=== PATIENT | female | born 1945 | race Caucasian/White ===

== ENCOUNTER → 2018-08-09 10:28 | Outpatient (CLI) | payer MEDICARE, OTHER, SELFPAY ==
--- NOTE | 2018-08-09 11:41 | DI.CT.S_ITS ---
PROCEDURE: CT SOFT TISSUE NECK W CON INDICATIONS: PARTIAL VOCAL CORD PARALYSIS; DYSPHONIA TECHNIQUE: After the administration of intravenous contrast, 3.0 mm axial sections acquired from the sella to the aortic arch. Additional oblique axial 3.0 mm sections acquired through the pharynx. 3 mm thick coronal and sagittal reformats were generated. For radiation dose reduction, the following was used: automated exposure control. COMPARISON: [facility], CT, PE STUDY (CTA CHEST), 12/10/2015, 7:54. [facility], CT, CT CHEST W CON, 08/09/2018, 12:04. FINDINGS: Image quality: Excellent. Lymph nodes: No enlarged lymph nodes seen throughout the neck. Vessels: Visualized vasculature appears patent. Neck spaces: The right false vocal cord appears slightly medialized. The vocal cords themselves are unremarkable. The oropharynx, nasopharynx, and pharynx demonstrate no mucosal lesions. The pyriform sinuses, epiglottis, vallecula, and tongue base all appear normal. Extramucosal spaces appear unremarkable. Glands: The parotid and submandibular glands appear normal. Thyroid gland demonstrates a 9 mm low-density lesion within the left thyroid. Miscellaneous: Visualized brain and orbits appear normal. Lung apices appear clear. Superficial soft tissues appear normal. Bones: No suspicious bony lesions. Visualized sinuses and mastoids appear unremarkable. Relatively prominent cervical spine degenerative changes are seen. IMPRESSION: No significant abnormality can be seen within the vocal cords themselves, although the right false vocal cord appears slightly medialized. Please correlate with direct visual inspection via laryngoscopy. 9 mm left thyroid nodule incidentally noted, which is stable compared to 2016. Relatively prominent cervical spine degenerative changes are seen. Dictated by: Brandon Hart M.D. on 08/09/2018 at 12:02 Approved by: Brandon Hart M.D. on 08/09/2018 at 12:05
--- NOTE | 2018-08-09 11:41 | DI.CT.S_ITS ---
PROCEDURE: CT CHEST W CON INDICATIONS: PARTIAL VOCAL CORD PARALYSIS; DYSPHONIA TECHNIQUE: After the administration of intravenous contrast, 5 mm thick sections acquired from the pulmonary apices to the posterior costophrenic angles. 7 mm thick coronal and sagittal MIP reformats were acquired. For radiation dose reduction, the following was used: automated exposure control, adjustment of mA and/or kV according to patient size. COMPARISON: [facility], CT, PE STUDY (CTA CHEST), 12/10/2015, 7:54. FINDINGS: Image quality: Excellent. Lungs and pleura: There is biapical scarring. Dependent atelectasis in posterior aspect of the lateral lower lobes is also seen. No pleural effusions or pneumothorax. Central and peripheral airways are patent and normal in caliber. Mediastinum: Heart size is normal. No pericardial effusion. No mediastinal or hilar adenopathy by size criteria. Thoracic aorta and central pulmonary arteries are normal in size. Esophagus is normal in caliber. No hiatal hernia. Bones and chest wall: No suspicious bony lesions. No vertebral body compression fractures. No axillary or supraclavicular adenopathy by size criteria. Thyroid gland shows interval decrease in size of patient's known hypodense structure involving the mid pole of left thyroid lobe, now measures approximately 6 x 3 mm in size compared to 9 x 7 mm in size a previous study.. Abdomen: Visualized upper abdominal solid organs appear normal. Upper abdominal bowel loops are normal in caliber. IMPRESSION: 1. No gross adenopathy is seen in the chest. No mediastinal mass or fluid collection. 2. Interval decrease in size of patient's known hypodense area involving midpole of left thyroid lobe. 3. Biapical scarring and bibasilar dependent atelectasis. Bilateral lens otherwise clear. Airway is patent. Dictated by: Ignacio Duncan M.D. on 08/09/2018 at 12:47 Approved by: Ignacio Duncan M.D. on 08/09/2018 at 13:05
[2018-08-09 12:06] LABS: BUN Creatinine Ratio 31.4 (6-22); Blood Urea Nitrogen 22 mg/dL (7-17); Estimated Glomerular Filt Rate > 60.0 mL/min (>60)
== END ==
PROVIDERS: Family Provider Internal Medicine; PCP Internal Medicine; Visit Provider Otolaryngology
DX: J38.01 Paralysis of vocal cords and larynx, unilateral (principal); J98.4 Other disorders of lung; E04.1 Nontoxic single thyroid nodule; R49.0 Dysphonia; R13.10 Dysphagia, unspecified
CPT/HCPCS: 36415; 70491; 71260; 82565; 84520; Q9967

== ENCOUNTER 2018-12-31 11:48 | Emergency (ER) | payer MEDICARE, OTHER, SELFPAY ==
[2018-12-31 11:53] VITALS: BP 142/72; PULSE 73; RESP 14; TEMP 36.2; O2SAT 100
--- NOTE | 2018-12-31 12:05 | ED.UPPEXIN ---
HPI - Extremity Injury (Upper) General Chief Complaint: Extremity Injury, Upper Stated Complaint: possibility of broken rt arm Time Seen by Provider: 12/31/18 12:05 Source: patient and family ( The ) Mode of arrival: ambulatory Limitations: no limitations History of Present Illness HPI narrative: This is a 73-year-old female comes in with complaint of right wrist pain as well as some tingling and numbness in her 1st and 2nd finger. Patient states that yesterday she fell with an outstretched hand she had immediate pain. She does notice some swelling. Patient states it is quite painful. She prefers not to movement. She states her hand feels a little cooler as well. Patient does take an aspirin daily. She denies any other injuries, she did not hit her she denies any neck back pain. She is right-hand dominant. Patient does take medication for blood pressure and a water pill. Denies prior surgeries. Related Data Home Medications Medication Instructions Recorded Confirmed Vitamins 1 dose PO DAILY 12/31/18 12/31/18 diltiazem HCl 120 mg PO Q12H 12/31/18 12/31/18 fluoxetine 20 mg PO DAILY 12/31/18 12/31/18 triamterene-hydrochlorothiazid 1 tab PO DAILY 12/31/18 12/31/18 Allergies Allergy/AdvReac Type Severity Reaction Status Date / Time No Known Drug Allergies Allergy Verified 12/31/18 11:58 Review of Systems Review of Systems ROS Unobtainable: All systems reviewed & are unremarkable except as noted in HPI and below Constitutional Denies other ( head injury) ENT Ears, Nose, Mouth, and Throat: Denies neck pain Musculoskeletal Reports as per HPI, Denies back pain, Reports arthralgias ( Right wrist), Reports joint swelling, Reports limited range of motion, Denies muscle weakness, Denies neck pain, Reports numbness ( 2nd 1st fingers) and Denies stiffness Integumentary/Breasts Reports unusual bruising Neurologic Reports numbness ( 2nd 1st fingers) PFSH Medical History Hypertension (Chronic) Social History Smoking Status: Never smoker Social History Smoking Status: Never smoker Exam Narrative Exam Narrative: GEN: well nourished, well appearing female, alert and oriented x 3, patient appears to be in mild distress. HEENT: Atraumatic, pupils are equal round reactive to light, extraocular movements are intact, nares are clear HEART: Regular rate and rhythm without murmur, clicks, rubs. LUNGS:Lungs clear to auscultation, no wheezes, rales, crackles, chest moves symmetrically ABD:bowel sounds normal, soft, non-tender, no guarding, rebound, rigidity, no masses noted, no hepatosplenomegaly MSCL: Non-tender, no muscle atrophy, patient has tenderness and swelling over the right distal wrist. Patient has a lot more swelling on the flexor side in comparison to extensor, patient has cap refill less than 2 sec in all 5 fingers. Right hand does feel little bit cooler than the left. She is able to move her fingers. She does not wish to do any further strength testing. Patient has sensation to light touch but states that the some has less sensation, the 2nd finger has some and 3rd 4th and 5th all have normal sensation. NEURO:CN 2-12 intact, sensation normal, reflexes 2/4 upper and lower extremities. Initial Vital Signs Initial Vital Signs: Vital Signs Temperature 97.1 F L 12/31/18 11:53 Pulse Rate 73 12/31/18 11:53 Respiratory Rate 14 12/31/18 11:53 Blood Pressure 142/72 H 12/31/18 11:53 Pulse Oximetry 100 12/31/18 11:53 Course Orders Ordered: ED Orders 12/31/18 12:05 XR wrist RT min 3V Stat Discontinued Medications Hydrocodone Bitart/Acetaminophen ([place] 5/325) 1 tab PO NOW ONE Stop: 12/31/18 13:51 Last Admin: 12/31/18 13:54 Dose: 1 tab Vital Signs - 8 hr 12/31/18 11:53 12/31/18 13:17 Temperature 97.1 F L Pulse Rate 73 60 Respiratory Rate 14 18 Blood Pressure 142/72 H Blood Pressure [Left Arm] 140/66 Pulse Oximetry 100 95 MDM - Extremity Injury (Upper) Imaging Data Right wrist x-ray: Radiologist's impression: Nanda Koenig 73 F [address] [address] XRay Report Signed Patient: Nanda Koenig EMR#: [id number] : 7Acct:[id number] Age/Sex: 73 / FDate of Service: 12/31/18 Loc: ED Accession Number: [id number] Procedure: XR wrist RT min 3V Ordering Provider: Shanna Lamar D.O. PROCEDURE: XR WRIST RT MIN 3V INDICATIONS: right wrist pain, deformity, fall yesterday TECHNIQUE: 3 views of the wrist were acquired. COMPARISON: None. FINDINGS: Bones: Accessory ossicle versus old ulnar styloid process avulsion fracture. No acute fractures or dislocations. No suspicious bony lesions. Wrist osteoarthritis. Scaphoid view: Scaphoid is intact. Soft tissues: No suspicious soft tissue calcifications. IMPRESSION: No acute fracture. No acute osseous lesion. If symptoms and/or clinical suspicion for pathology persists, further assessment with repeat radiographs (7-10 days) or advanced imaging (e.g. CT, MRI or bone scan) may be helpful. Dictated by: Gail Johnson MD, PhD on 12/31/2018 at 12:43 Approved by: Gail Johnson MD, PhD on 12/31/2018 at 12:44 [facility] Narrative Medical decision making narrative: Patient's x-ray is negative for fracture patient does have some swelling but it is more in the soft tissue, she does not have clear deformity. Patient does have full movement of her fingers. She has sensation to light touch about she says has improved while she has been here in the ED. She has had an ice pack on her hand but has good cap refill as well as a radial pulse. Plan to put patient in a splint to treat this patient as a fracture and discussed that she can have repeat imaging in 7-10 days if she continues to have pain to re-evaluate. Patient and I discussed ibuprofen and/or Tylenol. She states she does not like to take Tylenol she worries about liver issues is that she is quite uncomfortable so will do 1 dose of [place] here and could she continue ibuprofen and icing at home. Discharge Plan Departure Patient Disposition: Home Clinical Impression: Sprain and strain of wrist Discharge Date/Time: 12/31/18 14:06 Interventions: ED Discharge Assessment Last Done: 12/31/18 14:06 Instructions: DI for Wrist Sprain Activity Restrictions/Additional Instructions: Follow-up for repeat imaging in 7-10 days if your symptoms are not resolving in her wrist, occasionally people will have very small fractures that do not show up on initial imaging but do show up later as the bone is healing. If your pain has resolved you may stop using the wrist splint. Continue the wrist splint if your continuing to have pain. You may take 600 mg every ibuprofen every 600 hr. You may also take Tylenol a 1000 mg every 8 hr as needed for pain. You may take these 2 medications together if you wish. Splint Care: Keep splint clean and dry. Elevated affected body part to decrease swelling. OK to use ice pack on the affected body part. Use for 15-20 minutes each time, for 5-6x per day. If you develop worsening pain, numbness, tingling, discoloration of the affected body part, loosen the splint by loosening the JENNIFER wrap, and either see your doctor for an urgent re-assessment, or return to the Emergency Department. Return to the Emergency Department for any new or worsening symptoms. Prescriptions: No Action diltiazem HCl 120 mg Capsule,Extended Release 12 Hr 120 mg PO Q12H RF: 0 triamterene-hydrochlorothiazid 37.5-25 mg Tablet 1 tab PO DAILY RF: 0 fluoxetine 20 mg Capsule 20 mg PO DAILY RF: 0 Vitamins 1 dose PO DAILY RF: 0 Referrals: Lisa Love MD [Primary Care Provider] -
--- NOTE | 2018-12-31 12:11 | ED_ITS ---
HPI - Extremity Injury (Upper) General Chief Complaint: Extremity Injury, Upper Stated Complaint: possibility of broken rt arm Time Seen by Provider: 12/31/18 12:05 Source: patient and family ( The ) Mode of arrival: ambulatory Limitations: no limitations History of Present Illness HPI narrative: This is a 73-year-old female comes in with complaint of right wrist pain as well as some tingling and numbness in her 1st and 2nd finger. Patient states that yesterday she fell with an outstretched hand she had immediate pain. She does notice some swelling. Patient states it is quite painful. She prefers not to movement. She states her hand feels a little cooler as well. Patient does take an aspirin daily. She denies any other injuries, she did not hit her she denies any neck back pain. She is right-hand dominant. Patient does take medication for blood pressure and a water pill. Denies prior surgeries. Related Data Home Medications Medication Instructions Recorded Confirmed Vitamins 1 dose PO DAILY 12/31/18 12/31/18 diltiazem HCl 120 mg PO Q12H 12/31/18 12/31/18 fluoxetine 20 mg PO DAILY 12/31/18 12/31/18 triamterene-hydrochlorothiazid 1 tab PO DAILY 12/31/18 12/31/18 Allergies Allergy/AdvReac Type Severity Reaction Status Date / Time No Known Drug Allergies Allergy Verified 12/31/18 11:58 Review of Systems Review of Systems ROS Unobtainable: All systems reviewed & are unremarkable except as noted in HPI and below Constitutional Denies other ( head injury) ENT Ears, Nose, Mouth, and Throat: Denies neck pain Musculoskeletal Reports as per HPI, Denies back pain, Reports arthralgias ( Right wrist), Reports joint swelling, Reports limited range of motion, Denies muscle weakness, Denies neck pain, Reports numbness ( 2nd 1st fingers) and Denies stiffness Integumentary/Breasts Reports unusual bruising Neurologic Reports numbness ( 2nd 1st fingers) PFSH Medical History Hypertension (Chronic) Social History Smoking Status: Never smoker Social History Smoking Status: Never smoker Exam Narrative Exam Narrative: GEN: well nourished, well appearing female, alert and oriented x 3, patient appears to be in mild distress. HEENT: Atraumatic, pupils are equal round reactive to light, extraocular movements are intact, nares are clear HEART: Regular rate and rhythm without murmur, clicks, rubs. LUNGS:Lungs clear to auscultation, no wheezes, rales, crackles, chest moves symmetrically ABD:bowel sounds normal, soft, non-tender, no guarding, rebound, rigidity, no masses noted, no hepatosplenomegaly MSCL: Non-tender, no muscle atrophy, patient has tenderness and swelling over the right distal wrist. Patient has a lot more swelling on the flexor side in comparison to extensor, patient has cap refill less than 2 sec in all 5 fingers. Right hand does feel little bit cooler than the left. She is able to move her fingers. She does not wish to do any further strength testing. Patient has sensation to light touch but states that the some has less sensation, the 2nd finger has some and 3rd 4th and 5th all have normal sensation. NEURO:CN 2-12 intact, sensation normal, reflexes 2/4 upper and lower extremities. Initial Vital Signs Initial Vital Signs: Vital Signs Temperature 97.1 F L 12/31/18 11:53 Pulse Rate 73 12/31/18 11:53 Respiratory Rate 14 12/31/18 11:53 Blood Pressure 142/72 H 12/31/18 11:53 Pulse Oximetry 100 12/31/18 11:53 Course Orders Ordered: ED Orders 12/31/18 12:05 XR wrist RT min 3V Stat Discontinued Medications Hydrocodone Bitart/Acetaminophen ([place] 5/325) 1 tab PO NOW ONE Stop: 12/31/18 13:51 Last Admin: 12/31/18 13:54 Dose: 1 tab Vital Signs - 8 hr 12/31/18 11:53 12/31/18 13:17 Temperature 97.1 F L Pulse Rate 73 60 Respiratory Rate 14 18 Blood Pressure 142/72 H Blood Pressure [Left Arm] 140/66 Pulse Oximetry 100 95 MDM - Extremity Injury (Upper) Imaging Data Right wrist x-ray: Radiologist's impression: Nanda Koenig 73 F [address] [address] XRay Report Signed Patient: Nanda Koenig EMR#: [id number] : 7Acct:[id number] Age/Sex: 73 / FDate of Service: 12/31/18 Loc: ED Accession Number: [id number] Procedure: XR wrist RT min 3V Ordering Provider: Shanna Lamar D.O. PROCEDURE: XR WRIST RT MIN 3V INDICATIONS: right wrist pain, deformity, fall yesterday TECHNIQUE: 3 views of the wrist were acquired. COMPARISON: None. FINDINGS: Bones: Accessory ossicle versus old ulnar styloid process avulsion fracture. No acute fractures or dislocations. No suspicious bony lesions. Wrist osteoarthritis. Scaphoid view: Scaphoid is intact. Soft tissues: No suspicious soft tissue calcifications. IMPRESSION: No acute fracture. No acute osseous lesion. If symptoms and/or clinical suspicion for pathology persists, further assessment with repeat radiographs (7- 10 days) or advanced imaging (e.g. CT, MRI or bone scan) may be helpful. Dictated by: Gail Johnson MD, PhD on 12/31/2018 at 12:43 Approved by: Gail Johnson MD, PhD on 12/31/2018 at 12:44 [facility] Narrative Medical decision making narrative: Patient's x-ray is negative for fracture patient does have some swelling but it is more in the soft tissue, she does not have clear deformity. Patient does have full movement of her fingers. She has sensation to light touch about she says has improved while she has been here in the ED. She has had an ice pack on her hand but has good cap refill as well as a radial pulse. Plan to put patient in a splint to treat this patient as a fracture and discussed that she can have repeat imaging in 7-10 days if she continues to have pain to re-evaluate. Patient and I discussed ibuprofen and/or Tylenol. She states she does not like to take Tylenol she worries about liver issues is that she is quite uncomfortable so will do 1 dose of [place] here and could she continue ibuprofen and icing at home. Discharge Plan Departure Patient Disposition: Home Clinical Impression: Sprain and strain of wrist Discharge Date/Time: 12/31/18 14:06 Interventions: ED Discharge Assessment Last Done: 12/31/18 14:06 Instructions: DI for Wrist Sprain Activity Restrictions/Additional Instructions: Follow-up for repeat imaging in 7-10 days if your symptoms are not resolving in her wrist, occasionally people will have very small fractures that do not show up on initial imaging but do show up later as the bone is healing. If your pain has resolved you may stop using the wrist splint. Continue the wrist splint if your continuing to have pain. You may take 600 mg every ibuprofen every 600 hr. You may also take Tylenol a 1000 mg every 8 hr as needed for pain. You may take these 2 medications together if you wish. Splint Care: Keep splint clean and dry. Elevated affected body part to decrease swelling. OK to use ice pack on the affected body part. Use for 15-20 minutes each time, for 5-6x per day. If you develop worsening pain, numbness, tingling, discoloration of the affected body part, loosen the splint by loosening the JENNIFER wrap, and either see your doctor for an urgent re-assessment, or return to the Emergency Department. Return to the Emergency Department for any new or worsening symptoms. Prescriptions: No Action diltiazem HCl 120 mg Capsule,Extended Release 12 Hr 120 mg PO Q12H RF: 0 triamterene-hydrochlorothiazid 37.5-25 mg Tablet 1 tab PO DAILY RF: 0 fluoxetine 20 mg Capsule 20 mg PO DAILY RF: 0 Vitamins 1 dose PO DAILY RF: 0 Referrals: Lisa Love MD [Primary Care Provider] -
[2018-12-31 13:17] VITALS: BP 140/66; PULSE 60; RESP 18; O2SAT 95
[2018-12-31] MEDS: HYDROCODONE/ACET 5/325 TABLET 1 TAB PO (13:54)
== END 2018-12-31 14:06 | disposition home or self-care (01) ==
PROVIDERS: Emergency Provider Emergency Medicine; PCP Internal Medicine
DX: S63.501A Unspecified sprain of right wrist, initial encounter (principal)
CPT/HCPCS: 29260; 73110; 99282; 99283

== ENCOUNTER 2023-02-18 14:18 | Emergency (ER) | payer MEDICARE, OTHER, SELFPAY ==
[2023-02-18] VITALS (12 sets, daily range): BP systolic 151–181; BP diastolic 72–103; PULSE 62–82; RESP 18; TEMP 37.3; O2SAT 93–100; BMI 20.1
--- NOTE | 2023-02-18 15:26 | ED_ITS ---
HPI - Headache General Chief Complaint: Headache Stated Complaint: stiff neck/headache/ T-1 Time Seen by Provider: 02/18/23 15:25 Source: patient Mode of arrival: Ambulatory Limitations: no limitations History of Present Illness HPI Narrative: This 77-year-old patient arrives with severe neck pain, onset yesterday. She has pain radiating to the occipital scalp. She feels like she is locked, she can not move her head about. She is no recent trauma. She does not think she slept in a bad position. She denies recent illness. She is had no head cold, cough or congestion. She is no fever chills. She was seen last week in walk-in clinic with neck/upper back pain. She was diagnosed with trapezius strain. She is history of arthritis, evidence with changes in her hand knuckles. She is no prior diagnosis of osteoarthritis of the cervical spine. She does not have chronic head neck pain, symptoms began flaring last week as noted above. She is no upper extremity or lower extremity numbness or weakness. She is no incontinence. Related Data Home Medications Medication Instructions Recorded Confirmed Vitamins 1 dose PO DAILY 12/31/18 02/10/23 diltiazem HCl 120 mg 120 mg PO Q12H 12/31/18 02/10/23 capsule,extended release 12 hr fluoxetine 20 mg capsule 20 mg PO DAILY 12/31/18 02/10/23 triamterene 37.5 1 tab PO DAILY 12/31/18 02/10/23 mg-hydrochlorothiazide 25 mg tablet Previous Rx's Medication Instructions Recorded methylprednisolone 4 mg tablets in See Rx Instructions PO PER PKG DIR 02/10/23 a dose pack (Medrol (Rafita)) #21 ea methocarbamol 750 mg tablet 750 mg PO Q6H spasm #40 tabs 02/18/23 tramadol 50 mg tablet 50 mg PO Q6-8H PRN pain #20 tabs 02/18/23 Allergies Allergy/AdvReac Type Severity Reaction Status Date / Time No Known Drug Allergies Allergy Verified 02/10/23 14:06 Review of Systems Constitutional Constitutional: Denies body ache(s), Denies fatigue and Denies fever(s) Eyes Eyes: Denies change in vision ENT Ears, Nose, Mouth, and Throat: Denies vertigo, Denies dizziness and Reports neck pain Cardiovascular Cardiovascular: Denies chest pain and Denies rapid heart rate Respiratory Respiratory: Denies chest congestion and Denies cough Gastrointestinal Gastrointestinal: Denies abdominal pain and Denies nausea Musculoskeletal Musculoskeletal: Denies back pain, Denies muscle weakness, Denies myalgias, Reports neck pain, Denies numbness and Reports stiffness Integumentary/Breasts Skin/Breast: Denies lesions and Denies rash Neurologic Neurologic: Denies confusion, Denies vertigo, Denies dizziness and Denies numbness Psychiatric Psychiatric: Denies confusion Endocrine Endocrine: Denies fatigue Hematologic/Lymphatic On Anticoagulants: No Patient History Medical History (Updated 02/18/23 @ 18:30 by Faustino Wilson MD) Hypertension Social History Smoking Status: Never smoker Smoking Status: Never smoker alcohol intake frequency: 0-2 drinks per day Substance Use Type: does not use Exam Initial Vital Signs Initial Vital Signs: Vital Signs Pulse Rate 81 02/18/23 14:24 Pulse Oximetry 93 02/18/23 14:24 Const General: cooperative, healthy appearing and other (Uncomfortable due to neck pain.) HENMT Head: normocephalic and atraumatic Throat: posterior oropharynx normal Eyes General: Yes appearance normal, both eyes and all related structures Neck Other: Notable kyphosis tenderness along the cervical spine. Resp Effort & Inspection: normal respiratory effort Auscultation: clear to auscultation bilaterally Cardio Rate: regular rate Rhythm: regular rhythm Heart Sounds: S1 normal, S2 normal and no murmurs Back/Spine/Pelvis Back: No back tenderness Skin General: no rashes or lesions noted Neuro General: patient alert, patient awake, patient oriented x3 and no focal motor deficits Extrem General: normal to inspection and full ROM Psych Mental Status: mental status grossly normal Course Course Course Narrative: C-spine CT reveals diffuse osteoarthritis, as well as a cystic abnormality at C2. Malignancy is not suspected. She is moving a little better with less discomfort with medications given. She will be discharged on Advil, tramadol, and Robaxin. She should talk to her PCM about an MRI of her C-spine. Orders Ordered: ED Orders 02/18/23 15:31 CT cervical spine wo con Stat Discontinued Medications Hydrocodone Bitart/Acetaminophen (Hydrocodone/Acet 5/325 Tablet) 1 tab PO NOW ONE Stop: 02/18/23 17:54 Last Admin: 02/18/23 17:57 Dose: 1 tab Documented By: KAYODE Ketorolac Tromethamine (Ketorolac 30 Mg/Ml Vial) 30 mg IM NOW ONE Stop: 02/18/23 15:32 Last Admin: 02/18/23 15:46 Dose: 30 mg Documented By: KAYODE Vital Signs Vital signs: Vital Signs - 8 hr 02/18/23 14:29 02/18/23 14:24 02/18/23 14:25 Temperature 99.1 F Pulse Rate 82 81 79 Respiratory Rate 18 Blood Pressure 173/81 H Pulse Oximetry 97 93 96 Oxygen Delivery Method Room Air 02/18/23 14:25 02/18/23 14:30 02/18/23 14:30 Temperature Pulse Rate 81 Respiratory Rate Blood Pressure 173/81 H 155/75 H Pulse Oximetry 98 Oxygen Delivery Method 02/18/23 15:00 02/18/23 15:00 02/18/23 15:30 Temperature Pulse Rate 76 Respiratory Rate Blood Pressure 151/75 H 160/76 H Pulse Oximetry 97 Oxygen Delivery Method 02/18/23 15:30 02/18/23 16:00 02/18/23 16:00 Temperature Pulse Rate 78 62 Respiratory Rate Blood Pressure 158/103 H Pulse Oximetry 100 99 Oxygen Delivery Method 02/18/23 16:30 02/18/23 16:30 02/18/23 17:00 Temperature Pulse Rate 70 Respiratory Rate Blood Pressure 176/77 H 162/74 H Pulse Oximetry 99 Oxygen Delivery Method 02/18/23 17:00 02/18/23 17:30 02/18/23 17:30 Temperature Pulse Rate 63 69 Respiratory Rate Blood Pressure 151/72 H Pulse Oximetry 99 100 Oxygen Delivery Method 02/18/23 18:00 02/18/23 18:00 Temperature Pulse Rate 79 Respiratory Rate Blood Pressure 181/84 H Pulse Oximetry 99 Oxygen Delivery Method MDM - Headache Imaging Data CT - cervical spine: Radiologist's Impression: Noncontrast 3 mm thick sections acquired from the skull base to the T4 level.? Sagittal and coronal reformats were then constructed.? For radiation dose reduction, the following was used:? automated exposure control, adjustment of mA and/or kV according to patient size.? ? COMPARISON:? [facility], CT, CT SOFT TISSUE NECK W CON, 08/09/2018, 12:04. ? FINDINGS:? Image quality:? Excellent.? ? Bones:? Multilevel degenerative changes.? Visualized superior ribs are intact.? Multilevel degenerative changes are present.? There is a lucent focus in the posterior aspect of the C2 vertebral body which has become progressive since 2016, currently measuring 0.7 by 1.1 x 1.5 cm compared to 0.4 x 0.5 x 0.4 cm.? There is marked thinning of the posterior cortex, with the midportion demonstrating poor visualization of residual cortex ? Soft tissues:? Prevertebral soft tissues are normal in thickness.? No paravertebral hematomas.? No apical pneumothoraces.? Low-attenuation focus within the thyroid lobe is again identified slightly increased in size. ? ? IMPRESSION:? ? Progressive enlargement of cystic like structure in the C2 vertebral body compared to 2018.? It is likely benign given slow growth.? However, etiology is uncertain based on current exam.? As clinically indicated, MRI may be obtained on a nonemergent basis for further evaluation.? As noted above, there is marked thinning along the posterior cortex of the C2 vertebral body compared to prior exam.? Small cortical fracture within this region of indeterminate age cannot be excluded. ? Discharge Plan Departure Patient Disposition: Home Clinical Impression: Cervical osteoarthritis Qualifiers: Spinal osteoarthritis complication: without myelopathy or radiculopathy Qualified Code(s): M47.812 - Spondylosis without myelopathy or radiculopathy, cervical region Instructions: Osteoarthritis Activity Restrictions/Additional Instructions: Your osteoarthritis throughout her cervical spine. There is a cystic bone lesion at C2. Talk to your PCM, cervical MRI is suggested. Advil 2 tablets every 6-8 hours as needed for pain. Robaxin every 6 hours for spasm. I would suggest taking the Advil on Robaxin together. Tramadol every 6 hours for added pain control. Arrange follow-up with your PCM. Prescriptions: New tramadol 50 mg tablet 50 mg PO Q6-8H PRN (Reason: pain) Qty: 20 0RF methocarbamol 750 mg tablet 750 mg PO Q6H Qty: 40 0RF No Action methylprednisolone [Medrol (Rafita)] 4 mg tablets,dose pack See Rx Instructions PO PER PKG DIR Qty: 21 0RF Rx Instructions: PO PER PKG DIR diltiazem HCl 120 mg Capsule,Extended Release 12 Hr 120 mg PO Q12H triamterene-hydrochlorothiazid 37.5-25 mg Tablet 1 tab PO DAILY fluoxetine 20 mg Capsule 20 mg PO DAILY Vitamins 1 dose PO DAILY Patient Comments: patient states takes E, C, D3, Magnesium and multivit. Referrals: Vivien Smith MD [Primary Care Provider] - Stand Alone Forms: Patient Portal/API
--- NOTE | 2023-02-18 15:31 | DI.CT.S_ITS ---
PROCEDURE: CT CERVICAL SPINE WO CON INDICATIONS: Severe neck pain TECHNIQUE: Noncontrast 3 mm thick sections acquired from the skull base to the T4 level. Sagittal and coronal reformats were then constructed. For radiation dose reduction, the following was used: automated exposure control, adjustment of mA and/or kV according to patient size. COMPARISON: [facility], CT, CT SOFT TISSUE NECK W CON, 08/09/2018, 12:04. FINDINGS: Image quality: Excellent. Bones: Multilevel degenerative changes. Visualized superior ribs are intact. Multilevel degenerative changes are present. There is a lucent focus in the posterior aspect of the C2 vertebral body which has become progressive since 2016, currently measuring 0.7 by 1.1 x 1.5 cm compared to 0.4 x 0.5 x 0.4 cm. There is marked thinning of the posterior cortex, with the midportion demonstrating poor visualization of residual cortex Soft tissues: Prevertebral soft tissues are normal in thickness. No paravertebral hematomas. No apical pneumothoraces. Low-attenuation focus within the thyroid lobe is again identified slightly increased in size. IMPRESSION: Progressive enlargement of cystic like structure in the C2 vertebral body compared to 2018. It is likely benign given slow growth. However, etiology is uncertain based on current exam. As clinically indicated, MRI may be obtained on a nonemergent basis for further evaluation. As noted above, there is marked thinning along the posterior cortex of the C2 vertebral body compared to prior exam. Small cortical fracture within this region of indeterminate age cannot be excluded. Dictated by: Celine Quijano M.D. on 02/18/2023 at 16:19 Approved by: Celine Quijano M.D. on 02/18/2023 at 16:24
[2023-02-18] MEDS: KETOROLAC 30 MG/ML VIAL IM (15:46)
[2023-02-18] MEDS: HYDROCODONE/ACET 5/325 TABLET 1 TAB PO (17:57)
[2023-02-18] MEDS: TRAMADOL 50 MG PREPACK 1 BOTTLE MISC (18:43)
== END 2023-02-18 18:46 | disposition home or self-care (01) ==
PROVIDERS: Emergency Provider Emergency Medicine; PCP Student in an Organized Health Care Education/Training Program
DX: M47.812 Spondylosis without myelopathy or radiculopathy, cervical region (principal)
CPT/HCPCS: 72125; 96372; 99284; J1885

== ENCOUNTER 2023-02-21 15:25 | Emergency (ER) | payer MEDICARE, OTHER, SELFPAY ==
[2023-02-21 15:35] VITALS: BP 159/77; PULSE 87; RESP 18; TEMP 36.6; O2SAT 98; BMI 19.7
--- NOTE | 2023-02-21 16:11 | ED_ITS ---
HPI - General Adult General Chief complaint: Extremity Injury, Upper Stated complaint: Thinks Heart attack Time Seen by Provider: 02/21/23 15:42 Source: patient Mode of arrival: Wheelchair History of Present Illness HPI narrative: 77-year-old female who is here for evaluation of left shoulder left upper back pain. Initially the chief complaint was potentially a heart attack but this was given by the patient's not by the patient. She is not having chest pain. No shortness of breath. She was seen here in the emergency department a couple days ago where she was having neck discomfort causing her to have a headache. She had a CT scan of her neck and was discharged home with muscle relaxers and pain medication. She stated that those symptoms have improved but now she has pain in her left shoulder. She is pain with palpation and movement. No left elbow or wrist pain. No falls. She was told that she had arthritis. No skin changes. Related Data Home Medications Medication Instructions Recorded Confirmed Vitamins 1 dose PO DAILY 12/31/18 02/10/23 diltiazem HCl 120 mg 120 mg PO Q12H 12/31/18 02/10/23 capsule,extended release 12 hr fluoxetine 20 mg capsule 20 mg PO DAILY 12/31/18 02/10/23 triamterene 37.5 1 tab PO DAILY 12/31/18 02/10/23 mg-hydrochlorothiazide 25 mg tablet Previous Rx's Medication Instructions Recorded methylprednisolone 4 mg tablets in See Rx Instructions PO PER PKG DIR 02/10/23 a dose pack (Medrol (Rafita)) #21 ea methocarbamol 750 mg tablet 750 mg PO Q6H spasm #40 tabs 02/18/23 tramadol 50 mg tablet 50 mg PO Q6-8H PRN pain #20 tabs 02/18/23 hydrocodone 5 mg-acetaminophen 325 1 tab PO Q8H PRN pain #10 tabs 02/21/23 mg tablet prednisone 10 mg tablet 10 mg PO DIRECTED #20 tabs 02/21/23 Allergies Allergy/AdvReac Type Severity Reaction Status Date / Time No Known Drug Allergies Allergy Verified 02/21/23 15:45 Review of Systems Constitutional Constitutional: Reports system reviewed and no additional complaints, except as documented Cardiovascular Cardiovascular: Reports system reviewed and no additional complaints, except as documented Respiratory Respiratory: Reports system reviewed and no additional complaints, except as documented Musculoskeletal Musculoskeletal: Reports system reviewed and no additional complaints, except as documented Integumentary/Breasts Skin/Breast: Reports system reviewed and no additional complaints, except as documented Neurologic Neurologic: Reports system reviewed and no additional complaints, except as documented Hematologic/Lymphatic On Anticoagulants: No Patient History Medical History Hypertension Social History Smoking Status: Never smoker Smoking Status: Never smoker alcohol intake frequency: 0-2 drinks per day Substance Use Type: does not use Exam Initial Vital Signs Initial Vital Signs: Vital Signs Temperature 97.9 F 02/21/23 15:35 Pulse Rate 87 02/21/23 15:35 Respiratory Rate 18 02/21/23 15:35 Blood Pressure 159/77 H 02/21/23 15:35 Pulse Oximetry 98 02/21/23 15:35 Oxygen Delivery Method Room Air 02/21/23 15:35 Const General: cooperative, comfortable and No ill appearing HENMT Head: normal to inspection and normocephalic Resp Effort & Inspection: normal respiratory effort Cardio Pulses: radial pulses present on the left Back/Spine/Pelvis Cervical Spine: No cervical spinal tenderness Skin General: no rashes or lesions noted Neuro General: patient alert, patient awake and moves all extremities Extrem Other: Patient does have tenderness to palpation throughout her left shoulder and tenderness to palpation with movement. Course Orders Ordered: ED Orders 02/21/23 16:12 XR shoulder LT min 2V Stat Discontinued Medications Hydrocodone Bitart/Acetaminophen (Hydrocodone/Acet 5/325 Tablet) 1 tab PO NOW ONE Stop: 02/21/23 16:13 Last Admin: 02/21/23 16:18 Dose: 1 tab Documented By: CTS Vital Signs Vital signs: Vital Signs - 8 hr 02/21/23 15:35 02/21/23 17:20 Temperature 97.9 F Pulse Rate 87 91 H Respiratory Rate 18 Blood Pressure 159/77 H 165/76 H Pulse Oximetry 98 95 Oxygen Delivery Method Room Air Room Air Medical Decision Making Imaging Data Extremity x-ray #1: Radiologist's Impression: PROCEDURE:? XR SHOULDER LT MIN 2V ? INDICATIONS:? pain with movement ? TECHNIQUE:? 3 views of the shoulder were acquired.? ? COMPARISON:? None. ? FINDINGS:? ? Bones:? No fractures or dislocations.? No suspicious bony lesions.? Visualized ribs appear intact.? Moderate osteoarthritic changes of the glenohumeral joint with large osteophytes of the humerus and irregularities of the inferior glenoid. ? Soft tissues:? No suspicious soft tissue calcifications.? ? IMPRESSION:? Moderate shoulder osteoarthrosis. [facility] Narrative Medical decision making narrative: X-ray shows no acute pathology. Low suspicion for ACS. I do suspect that this is arthritis. Low suspicion for gout. Plan will be to put her on steroids for the next couple days. The last time she was on steroid she states that it took the pain completely away. Also provide pain medication. I did advise that she contact her primary doctor on Thursday for follow-up as she may need a referral to see Physical therapy Orthopedic surgery. She was given return precautions. She expressed understanding and agreement. Discharge Plan Departure Patient Disposition: Home Clinical Impression: Arthritis Instructions: DI for Arthritis Activity Restrictions/Additional Instructions: I recommend on Thursday you contact your primary doctor for follow-up as he most likely going to need a referral to see either physical therapy or the orthopedic surgeons. Take all of your medications as directed. Return to the emergency department for new symptoms Prescriptions: New hydrocodone-acetaminophen 5-325 mg tablet 1 tab PO Q8H PRN (Reason: pain) Qty: 10 0RF prednisone 10 mg tablet 10 mg PO DIRECTED Qty: 20 0RF Rx Instructions: 2T PO QD for 5D then 1T PO QD for 5 D then 1/2 T PO QD for 5D No Action methylprednisolone [Medrol (Rafita)] 4 mg tablets,dose pack See Rx Instructions PO PER PKG DIR Qty: 21 0RF Rx Instructions: PO PER PKG DIR diltiazem HCl 120 mg Capsule,Extended Release 12 Hr 120 mg PO Q12H triamterene-hydrochlorothiazid 37.5-25 mg Tablet 1 tab PO DAILY fluoxetine 20 mg Capsule 20 mg PO DAILY Vitamins 1 dose PO DAILY Patient Comments: patient states takes E, C, D3, Magnesium and multivit. tramadol 50 mg tablet 50 mg PO Q6-8H PRN (Reason: pain) Qty: 20 0RF methocarbamol 750 mg tablet 750 mg PO Q6H Qty: 40 0RF Referrals: Vivien Smith MD [Primary Care Provider] - Stand Alone Forms: Patient Portal/API
--- NOTE | 2023-02-21 16:12 | DI.RAD.S_ITS ---
PROCEDURE: XR SHOULDER LT MIN 2V INDICATIONS: pain with movement TECHNIQUE: 3 views of the shoulder were acquired. COMPARISON: None. FINDINGS: Bones: No fractures or dislocations. No suspicious bony lesions. Visualized ribs appear intact. Moderate osteoarthritic changes of the glenohumeral joint with large osteophytes of the humerus and irregularities of the inferior glenoid. Soft tissues: No suspicious soft tissue calcifications. IMPRESSION: Moderate shoulder osteoarthrosis. Dictated by: Doug Crowder M.D. on 02/21/2023 at 15:34 Approved by: Doug Crowder M.D. on 02/21/2023 at 15:35
[2023-02-21] MEDS: HYDROCODONE/ACET 5/325 TABLET 1 TAB PO (16:18)
[2023-02-21 17:20] VITALS: BP 165/76; PULSE 91; O2SAT 95
== END 2023-02-21 17:21 | disposition home or self-care (01) ==
PROVIDERS: Emergency Provider Emergency Medicine; PCP Student in an Organized Health Care Education/Training Program
DX: M19.012 Primary osteoarthritis, left shoulder (principal)
CPT/HCPCS: 73030; 99283

== ENCOUNTER → 2023-08-02 10:55 | Outpatient (CLI) | payer MEDICARE, OTHER, SELFPAY ==
--- NOTE | 2023-08-02 | DI.MRI.S_ITS ---
PROCEDURE: MR SHOULDER LT WO CON INDICATIONS: nontraumatic tear of left rotator cuff TECHNIQUE: Noncontrast oblique coronal T2 fast spin echo with fat saturation, oblique sagittal T1 spin echo and T2 fast spin echo with fat saturation, axial T1 spin echo and T2 fast spin echo with fat saturation through the shoulder. COMPARISON: None. FINDINGS: Image quality: Excellent. Rotator cuff: Low to moderate grade articular and bursal surface partial thickness tear involving distal supraspinatus at its insertion on the humeral head is seen extending to musculotendinous junction. Low-grade articular surface partial-thickness tear involving distal infraspinatus at its insertion on the humeral head is also noted. Subscapularis tendinosis is seen. No full-thickness rotator cuff tendon rupture. Sagittal images demonstrate mild to moderate supraspinatus muscle atrophy. Bones and bursae: Moderate acromioclavicular joint osteoarthritic changes are seen with joint space narrowing and downward osteophyte formation depressing the musculotendinous junction of supraspinatus. Moderate to severe glenohumeral joint osteoarthritic changes are seen with near complete loss of joint space, extensive subchondral sclerosis and edema and prominent downward osteophyte formation. There is moderate amount of joint effusion and small amount of subacromial subdeltoid bursal fluid. No definite intra-articular loose body is seen. No acute fracture or dislocation. Capsule and soft tissues: There is suggestion of superior anterior labral tear at 12 to 2 o'clock position and extensive inferior labral tear at 5 to 7 o'clock position. The long head of the biceps tendon demonstrates normal location and morphology. The rotator interval appears normal, without fibrosis. The coracohumeral ligament is normal in thickness. IMPRESSION: 1. Moderate acromioclavicular joint osteoarthritis and moderate to severe glenohumeral joint osteoarthritis. No acute fracture or dislocation. Moderate to large joint effusion and small amount of subacromial subdeltoid bursal fluid, no gross loose bodies. 2. Low to moderate grade articular and bursal surface partial thickness tear involving distal supraspinatus extending to musculotendinous junction. Low-grade articular surface partial-thickness tear involving distal infraspinatus. Distal subscapularis tendinosis. No full-thickness rotator cuff tendon rupture. Mild to moderate supraspinatus muscle atrophy. 3. Suggestion of superior anterior labral tear at 12 to 2 o'clock position and inferior labral tear at 5 to 7 o'clock position. Dictated by: Ignacio Duncan M.D. on 08/03/2023 at 11:14 Approved by: Ignacio Duncan M.D. on 08/03/2023 at 11:20
== END ==
PROVIDERS: PCP Student in an Organized Health Care Education/Training Program; Referring Provider Orthopaedic Surgery; Visit Provider Orthopaedic Surgery
DX: M19.012 Primary osteoarthritis, left shoulder (principal); M25.412 Effusion, left shoulder; M75.112 Incomplete rotator cuff tear or rupture of left shoulder, not specified as traumatic; M62.512 Muscle wasting and atrophy, not elsewhere classified, left shoulder
CPT/HCPCS: 73221

== ENCOUNTER 2023-08-16 11:13 | Emergency (ER) | payer MEDICARE, OTHER, SELFPAY ==
[2023-08-16 11:18] VITALS: BP 169/72; PULSE 69; RESP 16; TEMP 37; O2SAT 98; BMI 19.2
--- NOTE | 2023-08-16 11:22 | DI.RAD.S_ITS ---
PROCEDURE: XR KNEE RT 3V INDICATIONS: walking, felt a pop in her knee TECHNIQUE: 3 views of the knee were acquired. COMPARISON: None. FINDINGS: Bones: No fractures or dislocations. No suspicious bony lesions. Soft tissues: Moderate joint effusion. No suspicious soft tissue calcifications. IMPRESSION: Moderate knee joint effusion. No displaced fracture. Dictated by: Rusty High M.D. on 08/16/2023 at 12:02 Approved by: Rusty High M.D. on 08/16/2023 at 12:03
--- NOTE | 2023-08-16 13:28 | ED_ITS ---
HPI - Extremity Injury (Lower) <Sara Turcios PA-C - Last Filed: 08/16/23 14:03> General Chief Complaint: Extremity Injury, Lower Stated Complaint: R/knee injury [place]/ unable to bear weight Time Seen by Provider: 08/16/23 13:03 Source: patient Mode of arrival: Wheelchair History of Present Illness HPI Narrative: Patient is a 77-year-old female presenting for evaluation of right knee pain worsening yesterday. She reports that 1 week ago she twisted her knee while hiking for mushrooms. She states that after she twisted her knee, she was able to walk on it. She reports that although she had some pain along the lateral side of her right knee, she felt it was steadily improving. Yesterday, she notes that she was bending down to put pictures away in a closet when she felt a pop in the anterior side of her right knee just below her patella. She states she is not been able to bear weight since due to the pain. She states the pain radiates along the lateral side of her right leg and she is noticed downstream edema in her right ankle. She reports she is tried to keep her right knee elevated and used an Rivera wrap as well. She denies any pain in her popliteal Space. She notices that the edema in her right knee does seem to be improving. she denies shortness of breath or calf pain. She denies weakness in her right foot. she denies any pain in her right hip or groin. She denies any fever or redness over her right knee. She denies any back pain or anticoagulant use. Related Data Home Medications Medication Instructions Recorded Confirmed Vitamins 1 dose PO DAILY 12/31/18 02/10/23 diltiazem HCl 120 mg 120 mg PO Q12H 12/31/18 02/10/23 capsule,extended release 12 hr fluoxetine 20 mg capsule 20 mg PO DAILY 12/31/18 02/10/23 triamterene 37.5 1 tab PO DAILY 12/31/18 02/10/23 mg-hydrochlorothiazide 25 mg tablet Previous Rx's Medication Instructions Recorded methylprednisolone 4 mg tablets in See Rx Instructions PO PER PKG DIR 02/10/23 a dose pack (Medrol (Rafita)) #21 ea methocarbamol 750 mg tablet 750 mg PO Q6H spasm #40 tabs 02/18/23 tramadol 50 mg tablet 50 mg PO Q6-8H PRN pain #20 tabs 02/18/23 hydrocodone 5 mg-acetaminophen 325 1 tab PO Q8H PRN pain #10 tabs 02/21/23 mg tablet prednisone 10 mg tablet 10 mg PO DIRECTED #20 tabs 02/21/23 Allergies Allergy/AdvReac Type Severity Reaction Status Date / Time No Known Drug Allergies Allergy Verified 08/16/23 11:22 Review of Systems <Sara Turcios PA-C - Last Filed: 08/16/23 14:03> Review of Systems Narrative: See HPI Patient History <Sara Turcios PA-C - Last Filed: 08/16/23 14:03> Medical History Hypertension Social History Smoking Status: Never smoker Smoking Status: Never smoker alcohol intake frequency: 0-2 drinks per day Alcohol type: wine Substance Use Type: does not use Exam <Sara Turcios PA-C - Last Filed: 08/16/23 14:03> Initial Vital Signs Initial Vital Signs: Vital Signs Temperature 98.6 F 08/16/23 11:18 Pulse Rate 69 08/16/23 11:18 Respiratory Rate 16 08/16/23 11:18 Blood Pressure 169/72 H 08/16/23 11:18 Pulse Oximetry 98 08/16/23 11:18 Oxygen Delivery Method Room Air 08/16/23 11:18 GENERAL: 77 year old patient appears stated age. Well-developed patient, in no acute distress. HEAD: Atraumatic. Normocephalic. EYES: Pupils equal round No scleral icterus. No injection or drainage. NECK: Trachea midline, supple RESPIRATORY: Speaking comfortably normal tone of voice without any increased work of breathing. EXTREMITIES: Some edema in inferior infrapatellar spaces, no erythema over right knee, patient demonstrates 5/5 bilateral hip flexion and extension, patient demonstrates 4/5 right knee extension due to pain and 5/5 right knee flexion, left knee flexion extension is 5/5, she demonstrates 5/5 right foot dorsiflexion and plantar flexion. 2+ posterior tibialis pulse in right lower extremity. 1+ pitting edema in right lower extremity Evaluation of right knee shows no obvious laxity, patient has pain with anterior drawer and valrus stress test on the lateral side, no pain with posterior drawer, valgus stress test, Dai's, Dejon's of right knee. Nontender to palpation of tibial plateau, nontender to palpation of patella NEURO: AOx3. SKIN: No rash or erythema of visible areas <DO Adeel Walton Last Filed: 08/16/23 19:52> Initial Vital Signs Initial Vital Signs: Vital Signs Temperature 98.6 F 08/16/23 11:18 Pulse Rate 69 08/16/23 11:18 Respiratory Rate 16 08/16/23 11:18 Blood Pressure 169/72 H 08/16/23 11:18 Pulse Oximetry 98 08/16/23 11:18 Oxygen Delivery Method Room Air 08/16/23 11:18 Course <Sara Turcios PA-C - Last Filed: 08/16/23 14:03> Orders Ordered: ED Orders 08/16/23 11:22 XR knee RT 3V Stat Vital Signs Vital signs: Vital Signs - 8 hr 08/16/23 13:50 08/16/23 14:10 Temperature 98.1 F Pulse Rate 82 Pulse Rate [Right Dorsalis Pedis] 70 Respiratory Rate 16 Blood Pressure 148/68 H Pulse Oximetry 98 Oxygen Delivery Method Room Air <Shanna Lamar DO - Last Filed: 08/16/23 19:52> Orders Ordered: ED Orders 08/16/23 11:22 XR knee RT 3V Stat Vital Signs Vital signs: Vital Signs - 8 hr 08/16/23 13:50 08/16/23 14:10 Temperature 98.1 F Pulse Rate 82 Pulse Rate [Right Dorsalis Pedis] 70 Respiratory Rate 16 Blood Pressure 148/68 H Pulse Oximetry 98 Oxygen Delivery Method Room Air MDM - Extremity Injury (Lower) <ALANA Rogers Last Filed: 08/16/23 14:03> Imaging Data X-ray right knee: Radiologist's Impression: PROCEDURE: XR KNEE RT 3V INDICATIONS: walking, felt a pop in her knee TECHNIQUE: 3 views of the knee were acquired. COMPARISON: None. FINDINGS: Bones: No fractures or dislocations. No suspicious bony lesions. Soft tissues: Moderate joint effusion. No suspicious soft tissue calcifications. IMPRESSION: Moderate knee joint effusion. No displaced fracture. Dictated by: Rusty Hgih M.D. on 08/16/2023 at 12:02 Approved by: Rusty High M.D. on 08/16/2023 at 12:03 [facility] Narrative Medical decision making narrative: Patient is a 77-year-old female presenting for evaluation of right knee pain of sudden onset occurring yesterday while bending down. She had possibly twisted the same knee 1 week ago, but was able to bear weight and walk on it for the previous week. X-rays of right knee did not show any fracture. History and physical exam are consistent with a likely lateral collateral ligament sprain or strain with possible ACL involvement. We discussed treatment with compression elevation, minimal weight-bearing with a knee brace as well as ibuprofen and lidocaine patches. She denied anticoagulant use, hip pain, shortness of breath or fever so my suspicion for septic joint, knee fracture hip fracture is low. She did have some numbness in her right lower extremity without any calf pain. We discussed this is likely due to the swelling around her right knee. Exam showed intact strength of her right foot with dorsiflexion. Recommend continued follow up with Orthopedic. Since she has an appointment with tiffany Montelongo on Thursday, I recommend that she keep this appointment and call ahead to request further evaluation of her right knee. Multiple etiologies for patient's symptoms considered including, but not limited to: Septic joint, right knee sprain, right hip fracture, DVT, right knee fracture, peroneal nerve dysfunction Imaging reviewed: X-ray right knee showed joint effusion without right knee fracture Findings and discharge diagnosis discussed with patient/family followed by verbalization of understanding Return precautions discussed with patient/family whom verbalize understanding of diagnosis and plan Discharge Plan Departure Patient Disposition: Home Clinical Impression: Right knee sprain Qualifiers: Encounter type: initial encounter Involved ligament of knee: lateral collateral ligament Qualified Code(s): S83.421A - Sprain of lateral collateral ligament of right knee, initial encounter Activity Restrictions/Additional Instructions: Thank you for coming in today for your care. You received evaluation of pain in her right knee. X-rays of right knee did not show any fracture but there was evidence of an effusion which indicates inflammation. Findings on physical exam are consistent with a right knee sprain, possibly involving the lateral collateral ligament and possibly ACL. I recommend application of a knee brace to your right knee. We have offered you a knee brace from the ED. Please keep your right leg elevated, apply ice, do periodic ankle pumps to keep blood moving in her right leg and follow up with Orthopedic. We discussed that you have an appointment on Thursday with [facility]. I advised you to continue follow up with them for further evaluation of your knee. You may continue treatment with ibuprofen and lidocaine patches as well. [facility]'s phone number is [phone]. *What to do: *Please continue to take your regular medications as directed. [ ] New medication prescriptions sent to your pharmacy: [ ] [ ] New medication written as a paper prescription [x ] No new medications given *Please follow up with your primary care provider in 2-3 days, call for an appointment. Let them know you were seen in the Emergency Department and that we ask that you be seen in follow up. We will electronically transmit a record of today's note if your PCP is in our system *If you do not have a primary care provider please contact the [facility] Resource line at [phone]. They will ask some questions about your medical history and help get you set up with a doctor in the community. *Return to Emergency Department if you should have any new, worsening or concerning symptoms, such as fever greater than 101 F, shaking chills, worsening pain, worsening numbness the right lower extremity or weakness of the right lower extremity or other bothersome symptoms Prescriptions: No Action methylprednisolone [Medrol (Raftia)] 4 mg tablets,dose pack See Rx Instructions PO PER PKG DIR Qty: 21 0RF Rx Instructions: PO PER PKG DIR diltiazem HCl 120 mg Capsule,Extended Release 12 Hr 120 mg PO Q12H triamterene-hydrochlorothiazid 37.5-25 mg Tablet 1 tab PO DAILY fluoxetine 20 mg Capsule 20 mg PO DAILY Vitamins 1 dose PO DAILY Patient Comments: patient states takes E, C, D3, Magnesium and multivit. tramadol 50 mg tablet 50 mg PO Q6-8H PRN (Reason: pain) Qty: 20 0RF methocarbamol 750 mg tablet 750 mg PO Q6H Qty: 40 0RF hydrocodone-acetaminophen 5-325 mg tablet 1 tab PO Q8H PRN (Reason: pain) Qty: 10 0RF prednisone 10 mg tablet 10 mg PO DIRECTED Qty: 20 0RF Rx Instructions: 2T PO QD for 5D then 1T PO QD for 5 D then 1/2 T PO QD for 5D Referrals: Vivien Smith MD [Primary Care Provider] - Stand Alone Forms: Patient Portal/API ED Sign-out <Shanna Lamar DO - Last Filed: 08/16/23 19:52> Cosign ED Attending Cosignature Attestation: I was immediately available in the department for consultation. Documentation has been reviewed.
[2023-08-16 13:50] VITALS: PULSE 70
[2023-08-16 14:10] VITALS: BP 148/68; PULSE 82; RESP 16; TEMP 36.7; O2SAT 98
== END 2023-08-16 14:12 | disposition home or self-care (01) ==
PROVIDERS: Emergency Provider Physician Assistant; PCP Student in an Organized Health Care Education/Training Program
DX: S83.421A Sprain of lateral collateral ligament of right knee, initial encounter (principal); X50.1XXA Overexertion from prolonged static or awkward postures, initial encounter
CPT/HCPCS: 29530; 73562; 99282; 99283

== ENCOUNTER → 2024-06-01 12:57 | Outpatient (CLI) | payer MEDICARE, OTHER, SELFPAY ==
--- NOTE | 2024-06-01 12:59 | DI.RAD.S_ITS ---
PROCEDURE: XR CHEST 2V INDICATIONS: Cough TECHNIQUE: 2 views of the chest were acquired. COMPARISON: None. FINDINGS: Surgical changes and devices: None. Lungs and pleura: Lungs are clear. No pleural effusions or pneumothorax. Mediastinum: Mediastinal contours are normal. Heart size is normal. Calcification and tortuosity are seen in the thoracic aorta. Bones and chest wall: No suspicious bony abnormalities. Mild S shaped scoliosis with the thoracic portion convex to the left. Osteophytes in a mid and lower thoracic spine. Old healed left-sided rib fracture. Soft tissues appear unremarkable. IMPRESSION: No acute cardiopulmonary disease. Dictated by: Marquez Hall M.D. on 06/02/2024 at 13:12 Approved by: Marquez Hall M.D. on 06/02/2024 at 13:15
== END ==
PROVIDERS: PCP Student in an Organized Health Care Education/Training Program; Referring Provider Nurse Practitioner Family; Visit Provider Nurse Practitioner Family
DX: R05.9 Cough, unspecified (principal)
CPT/HCPCS: 71046

== ENCOUNTER 2025-09-02 11:31 | Emergency (ER) | payer MEDICARE, OTHER, SELFPAY ==
[2025-09-02] VITALS (8 sets, daily range): BP systolic 126–177; BP diastolic 59–81; PULSE 59–74; RESP 18–20; TEMP 36.2; O2SAT 96–98; BMI 19.6
--- NOTE | 2025-09-02 11:53 | DI.CT.S_ITS ---
PROCEDURE: CT CHEST WO CON INDICATIONS: chest trauma TECHNIQUE: Noncontrast 5 mm thick sections acquired from the pulmonary apices to the posterior costophrenic angles. 1 mm lung window, 5 mm thick coronal and sagittal and 7 mm axial MIP reformats were then acquired. For radiation dose reduction, the following was used: automated exposure control, adjustment of mA and/or kV according to patient size. COMPARISON: None. FINDINGS: Image quality: Diagnostic. Lower Neck: No enlarged lymph nodes. Thyroid: No thyroid nodules which require sonographic follow up, per consensus guidelines. Axillae: No enlarged lymph nodes. Chest Wall: Unremarkable. Bones: Left posterior 10th through 12th rib fractures. Left lateral nondisplaced 5th through 7th rib fractures. Sclerotic fracture lines suggestive of remote injury to the anterior lateral 7th and 8th rib. Lungs and Pleura: No pneumothorax or pleural effusions. Small bilateral pleural effusions. No pneumothorax. Heart: Heart size is normal. No pericardial effusion. Thoracic Vessels: The aorta and pulmonary arteries demonstrate normal size. Mediastinum and Beatrice: No enlarged lymph nodes. Esophagus: No wall thickening. No hiatal hernia. Upper Abdomen: Visualized upper abdomen solid organs and bowel loops appear normal. IMPRESSION: Acute posterior and lateral rib fractures without pneumothorax. Chronic left anterolateral rib fractures. Small bilateral pleural effusions. Dictated by: Doug Crowder M.D. on 09/02/2025 at 11:59 Approved by: Doug Crowder M.D. on 09/02/2025 at 12:06
--- NOTE | 2025-09-02 12:32 | PC.NURSE ---
patient breathing shallow due to pain. He breathing is shallow and short. breathe sounds clear on left slightly diminished on right. provider notified of concerns for future PNA and recommended IS training. Provider verbal order for IS placed by the RN.
--- NOTE | 2025-09-02 12:33 | ED.FALL ---
HPI - Fall General Chief Complaint: Fall Stated Complaint: fall off of high top chair, pain L side, back, SOB Time Seen by Provider: 09/02/25 11:48 Mode of arrival: Ambulatory History of Present Illness HPI Narrative: This is a 79-year-old female complaining of left-sided chest wall pain. It began 4 days ago when she fell from something over 3 ft height, she was standing on a bar stool. She landed on the floor. She says she did not hit her head, does not have any neck pain does not have any arm or leg pain she is not taking any blood thinners. She does feel short of breath. No nausea or vomiting. Related Data Home Medications ?Medication ?Instructions ?Recorded ?Confirmed Vitamins 1 dose PO DAILY 12/31/18 02/10/23 fluoxetine 20 mg capsule 20 mg PO DAILY 12/31/18 02/10/23 triamterene 37.5 1 tab PO DAILY 12/31/18 02/10/23 mg-hydrochlorothiazide 25 mg tablet diltiazem HCl 120 mg 120 mg PO DAILY 06/01/24 06/01/24 capsule,extended release 24 hr, controlled Previous Rx's ?Medication ?Instructions ?Recorded benzonatate 200 mg capsule 200 mg PO BID PRN cough #28 caps 06/01/24 docusate sodium 250 mg capsule 250 mg PO DAILY #10 caps 09/02/25 oxycodone 5 mg tablet 5 mg PO Q8H PRN pain #14 tabs 09/02/25 Allergies Allergy/AdvReac Type Severity Reaction Status Date / Time No Known Drug Allergies Allergy Verified 09/02/25 11:42 Patient History Medical History Hypertension Social History Smoking Status: Never smoker Smoking Status: Never smoker alcohol intake frequency: 0-2 drinks per day Alcohol type: wine Exam Narrative Exam Narrative: Alert ambulatory appears uncomfortable. Vital signs are reviewed. Normocephalic and atraumatic No midline tenderness of the cervical thoracic or lumbar spine. Patient's trunk is exposed there is no bruising she has a little bit of swelling to the left posterior chest wall. There is no crepitance she has a good expansion of her chest but this is painful. Breath sounds are clear and equal Regular rhythm rate no murmur rub or gallop Abdomen is soft and nontender Pelvis is stable to rock Fully oriented no motor deficits Initial Vital Signs Initial Vital Signs: Vital Signs Temperature 97.2 F L 09/02/25 11:42 Pulse Rate 68 09/02/25 11:42 Respiratory Rate 18 09/02/25 11:42 Blood Pressure 149/70 H 09/02/25 11:42 Pulse Oximetry 96 09/02/25 11:42 Oxygen Delivery Method Room Air 09/02/25 11:42 Course Orders Ordered: ED Orders 09/02/25 11:53 CT chest wo con Stat Discontinued Medications Oxycodone HCl (Oxycodone Ir 5 Mg Tablet) 10 mg PO NOW ONE Stop: 09/02/25 12:01 Last Admin: 09/02/25 12:20 Dose: 10 mg Documented By: DILCIA Vital Signs Vital signs: Vital Signs - 8 hr 09/02/25 11:42 09/02/25 11:55 09/02/25 11:55 Temperature 97.2 F L Pulse Rate 68 66 Respiratory Rate 18 Blood Pressure 149/70 H 166/69 H Pulse Oximetry 96 Oxygen Delivery Method Room Air 09/02/25 12:00 09/02/25 12:00 09/02/25 12:12 Temperature Pulse Rate 61 Respiratory Rate 19 Blood Pressure 128/60 177/74 H Pulse Oximetry 96 Oxygen Delivery Method 09/02/25 12:12 09/02/25 12:30 09/02/25 12:30 Temperature Pulse Rate 59 L 62 Respiratory Rate 20 19 Blood Pressure 140/65 Pulse Oximetry 98 97 Oxygen Delivery Method 09/02/25 13:00 09/02/25 13:00 09/02/25 13:30 Temperature Pulse Rate 74 Respiratory Rate 20 Blood Pressure 144/81 H 126/59 L Pulse Oximetry 96 Oxygen Delivery Method 09/02/25 13:30 Temperature Pulse Rate 66 Respiratory Rate 19 Blood Pressure Pulse Oximetry 96 Oxygen Delivery Method MDM - Fall Imaging Data CT scan - chest: My Impression: Independently reviewed CT chest, it appears that she has a couple of left lower rib fractures no pneumothorax no pulmonary contusion no pleural effusion Radiologist's Impression: [address] [address] [address] Scan Report Signed Patient: Nanda Koenig MR#: [id number] : 1945 Acct:[id number] Age/Sex: 79 / F Date of Service: 09/02/25 Loc: ED Accession Number: [id number] Procedure: CT chest wo con Ordering Provider: Wilton James MD PROCEDURE: CT CHEST WO CON INDICATIONS: chest trauma TECHNIQUE: Noncontrast 5 mm thick sections acquired from the pulmonary apices to the posterior costophrenic angles. 1 mm lung window, 5 mm thick coronal and sagittal and 7 mm axial MIP reformats were then acquired. For radiation dose reduction, the following was used: automated exposure control, adjustment of mA and/or kV according to patient size. COMPARISON: None. FINDINGS: Image quality: Diagnostic. Lower Neck: No enlarged lymph nodes. Thyroid: No thyroid nodules which require sonographic follow up, per consensus guidelines. Axillae: No enlarged lymph nodes. Chest Wall: Unremarkable. Bones: Left posterior 10th through 12th rib fractures. Left lateral nondisplaced 5th through 7th rib fractures. Sclerotic fracture lines suggestive of remote injury to the anterior lateral 7th and 8th rib. Lungs and Pleura: No pneumothorax or pleural effusions. Small bilateral pleural effusions. No pneumothorax. Heart: Heart size is normal. No pericardial effusion. Thoracic Vessels: The aorta and pulmonary arteries demonstrate normal size. Mediastinum and Beatrice: No enlarged lymph nodes. Esophagus: No wall thickening. No hiatal hernia. Upper Abdomen: Visualized upper abdomen solid organs and bowel loops appear normal. IMPRESSION: Acute posterior and lateral rib fractures without pneumothorax. Chronic left anterolateral rib fractures. Small bilateral pleural effusions. Dictated by: Doug Crowder M.D. on 09/02/2025 at 11:59 Approved by: Doug Crowder M.D. on 09/02/2025 at 12:06 [facility] Narrative Medical decision making narrative: 71-year-old female with a fall 4 days ago. Has chest wall pain. Her description and exam suggest it is clearly chest wall pain and not ischemic. She has no other injuries. Examination vital signs are reassuring 4 days after the fall she does have multiple rib fractures I discussed admission versus discharge to home. Patient would prefer to go home. I wrote a prescription for oxycodone discussed OTC analgesia and indications for return to the emergency department. She has an incentive spirometer. She is to follow up with her primary care provider. Discharge Plan Departure Patient Disposition: Home Clinical Impression: Fall Qualifiers: Encounter type: initial encounter Qualified Code(s): W19.XXXA - Unspecified fall, initial encounter Multiple rib fractures Qualifiers: Encounter type: initial encounter Fracture type: closed Laterality: left Qualified Code(s): S22.42XA - Multiple fractures of ribs, left side, initial encounter for closed fracture Activity Restrictions/Additional Instructions: Today, we saw you with multiple rib fractures from a fall 4 days ago. I think it is safe for you to go home. As we discussed, you are going to have pain for some time. I recommend that you use ibuprofen 400 mg 3 times a day, take this with food. Make sure that you are getting adequate fluids. You can also take acetaminophen (Tylenol) at usual [id number] doses. I have sent a prescription for a few oxycodone that you can use for uncontrolled pain, watch for constipation and uses only when necessary. Use the prescribed stool softener if you are taking the oxycodone. Use the provided incentive spirometer to help expand your lungs. You should be using it 3 to 4 times a day at least. Follow up soon with her primary care provider for a recheck. If you are having increasing shortness of breath fevers or other acute symptoms return to the emergency department. Prescriptions: New oxycodone 5 mg tablet 5 mg PO Q8H PRN (Reason: pain) Qty: 14 0RF docusate sodium 250 mg capsule 250 mg PO DAILY Qty: 10 0RF No Action diltiazem HCl 120 mg capsule,ext.rel 24h degradable 120 mg PO DAILY benzonatate 200 mg capsule 200 mg PO BID PRN (Reason: cough) Qty: 28 0RF triamterene-hydrochlorothiazid 37.5-25 mg Tablet 1 tab PO DAILY fluoxetine 20 mg Capsule 20 mg PO DAILY Vitamins 1 dose PO DAILY Patient Comments: patient states takes E, C, D3, Magnesium and multivit. Referrals: Vivien Smith MD [Primary Care Provider, Internal Medicine] Stand Alone Forms: Patient Portal/API
== END 2025-09-02 14:18 | disposition home or self-care (01) ==
PROVIDERS: Emergency Provider Emergency Medicine; PCP Student in an Organized Health Care Education/Training Program
DX: S22.42XA Multiple fractures of ribs, left side, initial encounter for closed fracture (principal); W17.89XA Other fall from one level to another, initial encounter
CPT/HCPCS: 71250; 99283; 99284